=== PATIENT | male | born 1995 | race African-American/Black ===

== ENCOUNTER 2016-09-04 21:05 | Emergency (ER) | payer MEDICAID, OTHER ==
[~2016-09-04] VITALS: Ht 172.7 cm; Wt 84.0 kg
[~2016-09-04 21:05] MED LIST: LEVE500T53 PO
[2016-09-04 21:32] LABS: GLUCOSE,POINT OF CARE 70 MG/DL (70-110)
[2016-09-04] MEDS ORDERED: LORazepam 2 MG/ML VIAL IVP ONE (21:45)
[2016-09-04] MEDS ORDERED: PHENYTOIN SODIUM 1,000 MG in SODIUM CHLORIDE 0.9% 150 ML IV ONE (21:45)
[2016-09-04 22:09] LABS: ANION GAP 9 mmol/L (8-16); CALCIUM, TOTAL 9.4 mg/dL (8.8-10.5); CARBON DIOXIDE 26 mmol/L (22-29); CHLORIDE 105 mmol/L (98-107); CREATININE 1.28 mg/dL (0.60-1.30); GLOMERULAR FILTR. RATE CALC > 60 mL/min (>60); POTASSIUM 4.4 mmol/L (3.5-5.1); SODIUM SERUM 140 mmol/L (136-145); UREA NITROGEN, BLOOD 13 mg/dL (7-18)
[2016-09-04 22:14] LABS: ALANINE AMINOTRANSFERASE 27 U/L (12-78); ALBUMIN 4.1 g/dL (3.4-5.0); ASPARTATE AMINOTRANSFERASE 18 U/L (15-37); BILIRUBIN,TOTAL 0.2 mg/dL (0.1-1.0)
[2016-09-04 22:18] LABS: BASOPHILS % (AUTO) 0.4 % (0.0-2.0); EOSINOPHILS % (AUTO) 4.8 % (1.0-6.0); HEMATOCRIT 45.3 % (41-53); HEMOGLOBIN 14.4 g/dL (13.5-17.5); LYMPHOCYTES # (AUTO) 2.3 K/uL (1.0-4.8); LYMPHOCYTES % (AUTO) 21.9 % (22.0-44.0); MEAN CORPUSCULAR HEMOGLOBIN 26.6 pg (26.0-34.0); MEAN CORPUSCULAR HGB CONC 31.7 G/dL (31.0-37.0); MEAN CORPUSCULAR VOLUME 84 fL (80-100); MONOCYTES % (AUTO) 9.3 % (2.0-9.0); NEUTROPHILS # (AUTO) 6.6 K/uL (1.8-7.7); NEUTROPHILS % (AUTO) 63.6 % (40.0-70.0); PLATELET COUNT (AUTO) 214 K/uL (150-450); WHITE BLOOD COUNT (AUTO) 10.3 K/uL (4.5-11.0)
[2016-09-04] MEDS ORDERED: LevETIRAcetam 500 MG TABLET PO ONE (22:30)
[2016-09-04] MEDS ORDERED: LORazepam 2 MG/ML VIAL IM ONE (22:30)
[2016-09-04 23:20] VITALS: BP 111/61
[2016-09-05] MEDS ORDERED: LevETIRAcetam 500 MG TABLET PO ONE (00:30)
== END 2016-09-05 00:36 | disposition home or self-care (01) ==
LOC: EMS 21:06
DX: G40.909 Epilepsy, unspecified, not intractable, without status epilepticus (principal)
CPT/HCPCS: 36415; 80053; 80307; 82962; 85025; 96372; 99284; G0480; J1165; J2060; J7050; 99285

== ENCOUNTER 2020-02-16 11:21 | Emergency (ER) | payer MEDICARE, OTHER ==
[~2020-02-16] VITALS: Ht 170.2 cm; Wt 83.7 kg
[2020-02-16] MEDS ORDERED: BRIV50TA PO (12:15)
[2020-02-16] MEDS ORDERED: LORazepam 2 MG TABLET PO ONE (13:00)
[2020-02-16 13:51] VITALS: BP 100/57
== END 2020-02-16 14:16 | disposition home or self-care (01) ==
LOC: EMS 11:38
DX: G40.909 Epilepsy, unspecified, not intractable, without status epilepticus (principal)

== ENCOUNTER 2021-10-26 12:23 | Emergency (ER) | payer MEDICARE, OTHER ==
[~2021-10-26] VITALS: Ht 157.5 cm; Wt 86.7 kg
[~2021-10-26 12:23] MED LIST changes: +BRIV50TA PO; -LEVE500T53 PO
[2021-10-26 13:26] LABS: GLUCOMETER DEV NAME(LOC) ERT.5; GLUCOSE,POINT OF CARE 146 MG/DL (70-110)
[2021-10-26 14:10] LABS: BASOPHILS % (AUTO) 0.7 % (0.0-2.0); HEMATOCRIT 42.7 % (41-53); HEMOGLOBIN 14.1 g/dL (13.5-17.5); LYMPHOCYTES # (AUTO) 0.9 K/uL (1.0-4.8); LYMPHOCYTES % (AUTO) 6.7 % (22.0-44.0); MEAN CORPUSCULAR HEMOGLOBIN 27.2 pg (26.0-34.0); MEAN CORPUSCULAR HGB CONC 33.1 G/dL (31.0-37.0); MEAN CORPUSCULAR VOLUME 82 fL (80-100); MONOCYTES # (AUTO) 1.1 K/uL (0.1-1.0); MONOCYTES % (AUTO) 8.1 % (2.0-9.0); NEUTROPHILS # (AUTO) 11.4 K/uL (1.8-7.7); NEUTROPHILS % (AUTO) 83.5 % (40.0-70.0); PLATELET COUNT (AUTO) 207 K/uL (150-450); RED BLOOD CELL COUNT(AUTO) 5.19 MIL/uL (4.50-5.90); RED CELL DISTRIBUTION WIDTH 14.2 % (11.5-14.5)
[2021-10-26 14:14] LABS: ANION GAP 10 mmol/L (8-16); CALCIUM, TOTAL 9.1 mg/dL (8.8-10.5); CARBON DIOXIDE 25 mmol/L (22-29); CHLORIDE 105 mmol/L (98-107); CREATININE 1.02 mg/dL (0.60-1.30); GLOMERULAR FILTR. RATE CALC > 60 mL/min (>60); GLUCOSE,RANDOM 105 mg/dL (70-110); POTASSIUM 3.9 mmol/L (3.5-5.1); SODIUM SERUM 140 mmol/L (136-145); UREA NITROGEN, BLOOD 11 mg/dL (7-18)
[2021-10-26 14:20] LABS: ALANINE AMINOTRANSFERASE 33 U/L (12-78); ALKALINE PHOSPHATASE 89 U/L (46-116); ASPARTATE AMINOTRANSFERASE 18 U/L (15-37); BILIRUBIN,TOTAL 0.2 mg/dL (0.1-1.0); TOTAL PROTEIN, SERUM 7.4 g/dL (6.4-8.2)
[2021-10-26 14:41] VITALS: BP 100/52
== END 2021-10-26 15:23 | disposition home or self-care (01) ==
LOC: EMS 12:25
DX: R56.9 Unspecified convulsions (principal); F79 Unspecified intellectual disabilities
CPT/HCPCS: 70450; 80053; 82962; 85025; 99284